=== PATIENT | female | born 1985 | race Caucasian/White ===

== ENCOUNTER 2018-06-25 06:15 | Day surgery (SDC) | payer OTHER ==
[2018-06-19 10:54] LABS: Absolute Lymphocytes (CBC) 2.4 K/uL (0.7-4.9); Absolute Monocytes 0.4 K/uL (0.1-1.3); Absolute Neutrophil 3.2 K/uL (1.8-8.0); Basophils % 0.6 % (0-1.3); Eosinophils % 4.5 % (0-4.4); Hematocrit 43.1 % (36.0-45.0); Lymphocytes % 37.9 % (15.3-44.8); MCH 31.4 pg (27.0-35.0); MCV 90.7 fL (80-100); MPV 9.6 fL (7.6-11.3); Monocytes % 6.9 % (3.3-12.3); RBC Red Blood Cell Count 4.75 M/uL (3.86-4.86)
[2018-06-19 10:58] LABS: Protime INR 0.99
[2018-06-19 11:15] LABS: BUN Blood Urea Nitrogen 15 mg/dL (7-18); Bicarbonate 28 mmol/L (21-32); Glucose Level 70 mg/dL (74-106); Potassium 4.5 mmol/L (3.5-5.1); Sodium Level 141 mmol/L (136-145)
--- NOTE | 2018-06-19 16:47 | EKG ---
Test Date: 2018-06-19 Test Time: 09:16:53 Leather Cutter: ELAINE MEASUREMENT RESULTS: Intervals: Rate: 55 VT: 120 QRSD: 78 QT: 418 QTc: 399 [place]: P: 40 VT: 120 QRS: 30 T: 44 INTERPRETIVE STATEMENTS: Sinus bradycardia Otherwise normal ECG Compared to ECG 09/24/2017 11:49:56 Sinus rhythm no longer present Electronically Signed On 06-19-18 16:44:38 CDT by Andrews Medina
[~2018-06-25 06:15] MED LIST: CLINDAMYCIN INJ 600 MG in NA CHLORIDE 0.9% 50 ML IV SCH
--- OUTSIDE RECORDS SUMMARY | 2018-06-25 06:19 | XMS REPORT ---
:1985 Author Organization e[employer] Care Team Providers Name Role Phone Jude Kaur Provider Role Unavailable Allergies No Known Allergies Problems Problem Type Condition Code Onset Dates Condition Status Problem Anxiety F41.9 Active Problem Depression F32.9 Active Problem Acquired hypothyroidism E03.9 Active Problem Blood tests for routine general Z00.00 Active physical examination Problem ADD (attention deficit disorder) F90.9 Active Problem Allergic rhinitis J30.9 Active Problem Sinus problem J34.9 Active Problem Chronic maxillary sinusitis J32.0 Active Problem Seasonal allergic rhinitis, J30.2 Active unspecified trigger Medications No Known Medications Results No Known Results Summary Purpose [employer]ClinicalWorks Submission
--- OUTSIDE RECORDS SUMMARY | 2018-06-25 06:19 | XMS REPORT ---
:1985 Author Organization [employer]Works Care Team Providers Name Role Phone Jude Kaur Provider Role Unavailable Allergies, Adverse Reactions, Alerts Substance Reaction Event Type penicillin hives Drug Allergy Problems Problem Type Condition Code Onset Dates Condition Status Problem Anxiety F41.9 Active Problem Depression F32.9 Active Assessment Tear of medial meniscus of right S83.241A Active knee, current, unspecified tear type, initial encounter Assessment Tear of anterior cruciate ligament T84.89XA Active graft, initial encounter Assessment Pain, joint, knee, right M25.561 Active Problem Acquired hypothyroidism E03.9 Active Problem Blood tests for routine general Z00.00 Active physical examination Problem ADD (attention deficit disorder) F90.9 Active Problem Allergic rhinitis J30.9 Active Problem Sinus problem J34.9 Active Problem Chronic maxillary sinusitis J32.0 Active Problem Seasonal allergic rhinitis, J30.2 Active unspecified trigger Medications Medication Code Code Instructions Start End Status Dosage System Date Date Vyvanse [facility] 37973291277 50 MG Orally Active 1 capsule Once a day in the morning Levothyroxine [facility] 00508841431 25 MCG Orally Active 1 tablet Sodium Once a day on an empty stomach in the morning Singulair [facility] 22654525519 10 MG Orally Active 1 tablet Once a day in the evening Albuterol Sulfate [facility] 10332048099 (2.5 MG/3ML) Active 3 ml as 0.083% needed Inhalation Three times a day Cheratussin AC [facility] 61765745475 100-10 MG/5ML Active 5 ml Orally every 4 hrs Bactrim DS [facility] 81253378918 800-160 MG Active 1 tablet Orally Twice a day Results Name Result Date Reference Range Unit Abnormality Flag MRI KNEE WO CONTRAST Summary Purpose eClinicalWorks Submission
--- OUTSIDE RECORDS SUMMARY | 2018-06-25 06:19 | XMS REPORT ---
:1985 Author Organization eClinicalWorks Care Team Providers Name Role Phone Nguyen, Na Provider Role Unavailable Allergies, Adverse Reactions, Alerts Substance Reaction Event Type penicillin hives Drug Allergy Problems Problem Type Condition Code Onset Dates Condition Status Problem ADD (attention deficit disorder) F90.9 Active Problem Chronic maxillary sinusitis J32.0 Active Problem Acquired hypothyroidism E03.9 Active Problem Antiphospholipid antibody syndrome D68.61 Active Problem Unspecified tear of unspecified S83.206A Active meniscus, current injury, right knee, initial encounter Problem Vitamin D deficiency E55.9 Active Problem Seasonal allergic rhinitis, J30.2 Active unspecified trigger Problem Blood tests for routine general Z00.00 Active physical examination Problem Sprain of anterior cruciate S83.511A Active ligament of right knee, initial encounter Problem Preop examination Z01.818 Active Assessment Vitamin D deficiency E55.9 Active Assessment Antiphospholipid antibody syndrome D68.61 Active Assessment Unspecified tear of unspecified S83.206A Active meniscus, current injury, right knee, initial encounter Assessment Sprain of anterior cruciate S83.511A Active ligament of right knee, initial encounter Problem Allergic rhinitis J30.9 Active Problem Sinus problem J34.9 Active Assessment Preop examination Z01.818 Active Problem Depression F32.9 Active Problem Anxiety F41.9 Active Medications Medication Code Code Instructions Start End Status Dosage System Date [facility] 63894254436 50 MG Orally Active 1 capsule Once a day in the morning Albuterol Sulfate [facility] 76245986844 (2.5 MG/3ML) Active 3 ml as 0.083% needed Inhalation Three times a day Levothyroxine [facility] 20290947677 25 MCG Orally Active 1 tablet Sodium Once a day on an empty stomach in the morning Bactrim DS [facility] 66485389898 800-160 MG Active 1 tablet Orally Twice a day Singulair [facility] 26410285382 10 MG Orally Active 1 tablet Once a day in the evening Cheratussin AC [facility] 94016265433 100-10 MG/5ML Active 5 ml Orally every 4 hrs Results No Known Results Summary Purpose eClinicalWorks Submission
--- OUTSIDE RECORDS SUMMARY | 2018-06-25 06:19 | XMS REPORT ---
:1985 Author Organization eClinicalWorks Care Team Providers Name Role Phone Nguyen, Na Provider Role Unavailable Allergies No Known Allergies [...] initial encounter Problem Preop examination Z01.818 Active Problem Allergic rhinitis J30.9 Active Problem Sinus problem J34.9 Active Problem Depression F32.9 Active Problem Anxiety F41.9 Active Medications No Known Medications Results No Known Results Summary Purpose [employer] Submission
--- OUTSIDE RECORDS SUMMARY | 2018-06-25 06:20 | XMS REPORT ---
[...] encounter Problem Preop examination Z01.818 Active Assessment Tear of medial meniscus of right S83.241A Active knee, current, unspecified tear type, initial encounter Assessment Tear of anterior cruciate ligament T84.89XA Active graft, initial encounter Problem Allergic rhinitis J30.9 Active Problem Sinus problem J34.9 Active Assessment Pain, joint, knee, right M25.561 Active Problem Depression F32.9 Active Problem Anxiety F41.9 Active Medications Medication Code Code Instructions Start End Status Dosage System Date [facility] 67312010803 50 MG Orally Active 1 capsule Once a day in the morning [place] [facility] 92686446194 7.5-325 MG Jun 17Jun 27, Active 1-2 tablet Orally every 2017 2017 as needed 4-6 hrs Bactrim DS [facility] 51795136436 800-160 MG Active 1 tablet Orally Twice a day Singulair [facility] 86592965863 10 MG Orally Active 1 tablet Once a day in the evening Levothyroxine [facility] 72899952596 25 MCG Orally Active 1 tablet Sodium Once a day on an empty stomach in the morning Cheratussin AC [facility] 35476385683 100-10 MG/5ML Active 5 ml Orally every 4 hrs Xarelto [facility] 04135584190 10 MG Orally Oct 02, Active 1 tablet Once a day 2017 with food Albuterol Sulfate [facility] 10806361509 (2.5 MG/3ML) Active 3 ml as 0.083% needed Inhalation Three times a day Results No Known Results Summary Purpose eClinicalWorks Submission
[2018-06-25] MEDS ORDERED: CLINDAMYCIN 900MG/D5W 900 MG/50 ML BAG IV ONE (06:42)
[2018-06-25] MEDS ORDERED: Ringers Lactate 1,000 ML IV ONE ×2 (06:42→09:04)
[2018-06-25] MEDS ORDERED: FENTANYL CITR 250 MCG/5 ML ONE (07:00)
[2018-06-25] MEDS ORDERED: PROPOFOL 200 MG/20 ML VIAL IV ONE (07:00)
[2018-06-25] MEDS ORDERED: MIDAZOLAM HCL 2 MG/2 ML INJ ONE ×2 (07:00→07:27)
[2018-06-25] MEDS ORDERED: LIDOCAINE 2% MPF 5 ML VIAL ONE (07:00)
[2018-06-25] MEDS ORDERED: ROPLVACAINE HCL 20 ML ONE (07:10)
[2018-06-25] MEDS ORDERED: DEXAMETHASONE 4 MG/ML VIAL ONE (07:10)
[2018-06-25] MEDS ORDERED: FENTANYL CITR 100 MCG/2 ML ONE (09:39)
[2018-06-25] MEDS ORDERED: KETOROLAC 30 MG/ML INJ ONE (10:25)
--- NOTE | 2018-06-25 10:41 | P.BOP ---
Preoperative diagnosis: right failed ACL reconstruction and medial meniscus tear Postoperative diagnosis: same Primary procedure: right knee arthroscopic revision ACL reconstruction Secondary procedure: right knee arthroscopic partial medial meniscectomy Other procedure(s): right knee removal of hardware Chief Port Director: Abebe Delatorre Estimated blood loss: 10 cc Specimen: none Findings: see dictation Anesthesia: General Complications: None Implants: 9x20 mm Arthrex Retroscrew, 7x23 arthrex biocomposite screw, 6.5mm post Fluids & blood products: per anesthesia; TT: 127 mins @ 300 mmHg Transferred to: Recovery Room Condition: Good
[2018-06-25] MEDS: MEPERIDINE HCL 50 MG/ML AMP ONE ×6 (10:43→11:14)
[2018-06-25] MEDS ORDERED: ONDANSETRON 4 MG/2 ML VIAL ONE (10:50)
--- NOTE | 2018-06-25 11:37 | RAD REPORT ---
EXAM DESCRIPTION: RAD - Knee Right 2 View - 06/25/2018 11:12 am CLINICAL HISTORY: Right knee surgery FINDINGS: Postsurgical changes of an ACL repair. No fracture or dislocation is seen.
[2018-06-25] MEDS: HYDROCODONE/APAP 7.5/325 MG TAB ONE ×2 (12:02→12:04)
--- NOTE | 2018-06-27 11:12 | OP ---
JDate of Procedure: 06/25/2018 Surgeon: Jude Kaur MD Delivery Supervisor: Abebe Delatorre. Preoperative Diagnoses: 1.Right knee failed anterior cruciate ligament reconstruction. 2.Right knee medial meniscus tear. 3.Right knee retained hardware. Postoperative Diagnoses: 1.Right knee failed anterior cruciate ligament reconstruction. 2.Right knee medial meniscus tear. 3.Right knee retained hardware. Procedure Performed: 1.Right knee removal of hardware. 2.Right knee arthroscopic revision of anterior cruciate ligament reconstruction. 3.Right knee arthroscopic partial medial meniscectomy. Anesthesia: General LMA. Fluids: Per Anesthesia record. Ebl: Less than 10 cc. Tourniquet Time: 127 minutes at 300 mmHg. Implants: 1.A 7 x 23 Arthrex BioComposite screw. 2.A 9 x 20 mm Arthrex retro screw. 3.6.5 mm cancellous post. Complications: None. Indication For Procedure: [place] is a 33-year-old female who presented to my clinic with debility a nd pain to her right knee. Physical exam findings and MRI findings were consistent with a right knee ACL tear as well as the medial meniscus tear. I discussed with the patient at length risks and bene fits associated with operative and nonoperative treatment. She expressed understanding and elected t o proceed with revision ACL reconstruction with Achilles allograft. Description Of Procedure: After informed consent was obtained, the patient was identified in the pre operative holding area. The right lower extremity was marked. The patient was then taken back to e PACU and underwent a femoral nerve block performed by Anesthesia. She was then taken back to the o perating room, transferred to the operating table in a supine fashion, and placed under general LMA a nesthesia. The right lower extremity was then examined and she has full range of motion. She had a debility with Patricio's as well as positive pivot shift examination. The right lower extremity was t hen prepped and draped in usual sterile fashion. A time-out was initiated. Correct patient and proc edure were confirmed and identified. The patient did receive preoperative prophylactic antibiotics. Right lower extremity was then exsanguinated with an Esmarch. The tourniquet was inflated to 300 mm Hg. Attention was first taken to the tibial tunnel incision over the proximal medial tibi a was made at the level of the bones, and the dissection was then taken down to find the prior metal interference screw. While this was being performed, Abebe Delatorre was preparing the Achilles allogra ft on the back table in a 9 x 20 mm bone plug and a 10 mm thickness for a total length of 80 mm. Once, the metal interference screw was found within the tibial tunnel, a drill was then used to clean out the hole within the screw and the screw was then removed without complication. Next, st hines anteromedial and anterolateral portals were created. A diagnostic arthroscopy was performed. The arthroscope was first brought into the patellofemoral joint. There was no significant chondroma lacia on the undersurface of patella. There was some fissuring noted in trochlear groove. Arthrosco pe was then brought into the both medial and lateral gutters. There were no loose bodies within the gutters. The arthroscope was then brought into the medial compartment. There was mild grade 1 chond romalacia of the medial femoral condyle and medial tibial plateau. It was thought that there was a v ertical type tear of the posterior horn of the lateral meniscus in the white-white zone, and it did n ot appear to be amenable to repair. At that point, a partial medial meniscectomy was performed using meniscal biters and arthroscopic shaver to stable meniscal borders. Next, the arthroscope was broug ht into the intercondylar notch. The patient was noted to have empty notch consistent with a failed ACL reconstruction. PCL was found to be intact. ACL graft remnants were then removed using an arthr oscopic shaver as well as radiofrequency ablator. Next, attention was taken to the lateral compartme nt where the patient was noted to have a pristine cartilage of the lateral femoral condyle and latera l tibial plateau, and the lateral meniscus was found to be stable to probe. Next, attention was then taken back to the intercondylar notch and the tibial tunnel was then made over the prior tibial tunn el. Guide pin was brought in from a retrograde position from the proximal tibia intra-articularly an d held into position with a hemostat. Over the guide pin, it was then sequentially reamed from size 4.[address] to size 11 reamer. Overall good position. Plug was then placed. Next, at tention was taken to remove the femoral sided interference screw. The screw was found silvestre alejandra in a transtibial fashion. Screw farm truck driver was then placed through the tibial tunnel; however, it wa s noted that the screw was stripped. At that point, it was also evaluated how long the lateral femor al condyle and the lateral femoral condyle was away from that screw, and at that point it was elected to leave the screw in place as it would not intersect the deep femoral tunnel. The 7 mm ptwb-mod-rou guide was then placed along the posterior cortex of the lateral femoral condyle and the pin was then placed also through the guide at the lateral aspect of the thigh, held into position. T his was over-reamed with a 4.5 mm reamer followed by a 10 mm low-profile reamer to the depth of appro ximately 25 mm. It did not intersect with the old screw. A passing suture was then placed through b oth tunnels and the grafts that had been prepared was brought in through the tibial tunnel and placed into position within the femoral tunnel using a probe as well as hemostat. Once in proper position and it was within the tunnel. The tunnel was then notched, then tapped, then a 7 x 23 Arthrex Bio[employer] posite screw was placed, and there was good fixation of the graft within the tibial tunnel. Next, th e knee was placed at full range of motion. There was no impingement of the graft. Then, a 9 x 20 mm RetroScrew was then placed within the tibial tunnel from the articular entrance of the tibial tunnel , and there was good fit of the screw graft within the tunnel. A 6.5 mm post was then silvestre alejandra on the tibia approximately little over 1 cm distal to the tibial tunnel for backup fixation and t he remainder of the sutures were tied over the post until the post was brought down to the cortex of the proximal tibia. Remaining sutures were cut. The wounds were then irrigated thoroughly with norm al saline. Holes were approximated using a 3-0 Vicryl. Subcutaneous tissues were approximated using a 2-0 Vicryl, and portals and skin incisions approximated using a 3-0 Monocryl. Sterile dressings w ere applied. The patient was placed in a fixed knee brace, locked in extension. She was awakened. Tourniquet was let down, and the patient was transferred to PACU in stable condition. Postoperative Plan: She will be weightbearing as tolerated. She will follow up in my clinic in one week for wound check and dressing change, and she will follow the ACL Delayed Rehabilitation Protocol . SHAWN/ARIELLA Voice ID: [id number] Report ID: [id number]
== END 2018-06-25 13:08 | disposition home or self-care (01) ==
LOC: OR 06:15
PROVIDERS: ATTEND Orthopaedic Surgery Sports Medicine
PROC: 0MQN4ZZ Repair Right Knee Bursa and Ligament, Percutaneous Endoscopic Approach (ICD-10-PCS; 2018-06-25)
PROC: 0SPC04Z Removal of Internal Fixation Device from Right Knee Joint, Open Approach (ICD-10-PCS; 2018-06-25)
PROC: 0SBC4ZZ Excision of Right Knee Joint, Percutaneous Endoscopic Approach (ICD-10-PCS; principal; 2018-06-25 07:30)
DX: T84.410A Breakdown (mechanical) of muscle and tendon graft, initial encounter (principal); S83.241A Other tear of medial meniscus, current injury, right knee, initial encounter; Z88.0 Allergy status to penicillin
CPT/HCPCS: 36415; 80048; 81025; 85025; 85610; 85730; 93005; J2175; J2250; J2405; J2795; J3010